=== PATIENT | female | born 1945 | race Caucasian/White ===

== ENCOUNTER 2016-07-26 05:56 | Inpatient (IN) | payer OTHER ==
[2016-07-18 13:59] VITALS: BMI 25.7
[2016-07-26] MEDS ORDERED: CELECOXIB 200 MG CAPSULE PO ONE (06:08)
[2016-07-26] MEDS ORDERED: oxyCODONE HCL 10 MG SUSTAINED ACTING TABLET PO ONE (06:08)
[2016-07-26] MEDS ORDERED: CEFAZOLIN 1 GM/D5W 50 ML IVPB ONE (06:08)
[2016-07-26] MEDS ORDERED: TRANEXAMIC ACID 1000 MG/10 ML VIAL IVPUSH ONE (06:08)
[2016-07-26] MEDS ORDERED: GABAPENTIN 300 MG CAPSULE (FP) PO ONE (06:08)
[2016-07-26] MEDS ORDERED: ROPIVICAINE 0.2%/MORPH PF/KETOROLAC - 51ML DISP.SYRINGE IA ONE ×2 (06:08→07:14)
[2016-07-26] MEDS ORDERED: DEXAMETHASONE SOD PHOSPHATE/PF 10 MG/ML SDV ONE (06:40)
[2016-07-26] MEDS ORDERED: MIDAZOLAM HCL 2 MG/2 ML SINGLE DOSE VIAL ONE (06:41)
[2016-07-26] MEDS ORDERED: SODIUM CHLORIDE 0.9% P/F 10 ML VIAL IJ ONE (06:41)
[2016-07-26] MEDS ORDERED: ROPIVACAINE HCL 0.5% 30ML VIAL ONE (06:41)
[2016-07-26] MEDS ORDERED: TRANEXAMIC ACID 1000 MG/10 ML VIAL ONE ×2 (07:13→07:44)
[2016-07-26] MEDS ORDERED: ceFAZolin SODIUM 1 GM VIAL ONE ×2 (07:13→07:44)
[2016-07-26] MEDS ORDERED: VANCOMYCIN 1,000 MG VIAL (RESTRICTED TO ID ONLY) ONE (07:13)
--- NOTE | 2016-07-26 07:43 | HP ---
Admitting History and Physical - Admission Chief Complaint: Right knee osteoarthritis x years History of Present Illness: 71 year old female presents in regard to her right knee. Longstanding history of right knee osteoarthritis. Patient complains of pain, limited ROM and difficulty ambulating. Patient has failed conservative treatment including PO medication, injections, activity modification and an exercise program. At this point, patient would like to proceed with a right total knee arthroplasty. History Source: Patient - Past Medical History Cardiovascular: Yes: HTN Gastrointestinal: Yes: GERD ...: No Heme/Onc: Yes: B12 Deficiency Endocrine: Yes: Hypothyroidism - Past Surgical History Additional Past Surgical History: See written history & physical - Smoking History Smoking history: Former smoker Have you smoked in the past 12 months: No If you are a former smoker, when did you quit?: 1996 - Alcohol/Substance Use Hx Alcohol Use: Yes (OCCASIONALLY) Home Medications - Allergies Allergies/Adverse Reactions: Allergies Allergy/AdvReac Type Severity Reaction Status Date / Time Graawgj-Ekf-Ozt Reductase Allergy Severe MUSCLE Verified 07/18/16 14:01 Inhibitor PAIN, DIFFICULTY WALKING - Home Medications Home Medications: Ambulatory Orders Bisoprolol Fumarate/Hctz [Bisoprolol-Hctz 5-6.25 mg Tab] 1 tab PO DAILY Cholecalciferol (Vitamin D3) [Vitamin D3 -] 1,000 unit PO DAILY 07/18/16 Cyanocobalamin (Vitamin B-12) [Vitamin B12] 2,500 mcg PO DAILY 07/18/16 Ibuprofen 800 mg PO PRN PRN 07/18/16 Lansoprazole [Prevacid] 30 mg PO DAILY 07/18/16 Levothyroxine [Synthroid -] 75 mcg PO DAILY 07/18/16 Losartan Potassium 25 mg PO DAILY 07/18/16 [place]-3 Fatty Acids/Fish Oil [Fish Oil 1,000 mg Softgel] 1,000 mg PO DAILY 07/18 Review of Systems - Review of Systems Musculoskeletal: reports: Crepitus (Right knee), Decreased ROM (Right knee), Joint Pain (Right knee), Joint Swelling (Right knee) Physical Examination Vital Signs: Vital Signs Temperature 98.1 F 07/26/16 06:39 Pulse Rate 60 07/26/16 06:39 Respiratory Rate 18 07/26/16 06:39 Blood Pressure 141/80 07/26/16 06:39 O2 Sat by Pulse Oximetry (%) Constitutional: Yes: Well Nourished, No Distress Eyes: Yes: Conjunctiva Clear HENT: Yes: Atraumatic, Normocephalic Neck: Yes: Supple Cardiovascular: Yes: Regular Rate and Rhythm Respiratory: Yes: Regular Gastrointestinal: Yes: Soft ...Rectal Exam: Yes: Deferred Musculoskeletal: Yes: Joint Stiffness (Right knee), Joint Swelling (Right knee) Assessment/Plan 71 year old female with longstanding right knee osteoarthritis. Patient is limited in ADLs and ambulation. Patient has failed conservative treatment. Proceed with a right total knee arthroplasty.
[2016-07-26] MEDS ORDERED: PROPOFOL 20 ML ONE (07:44)
[2016-07-26] MEDS ORDERED: SUCCINYLCHOLINE CHLORIDE 200 MG/10 ML VIAL ONE (07:44)
[2016-07-26] MEDS ORDERED: BUPIVACAINE HCL/PF 0.5% (5MG/ML) 10 ML VIAL ONE (07:52)
--- NOTE | 2016-07-26 08:05 | HP ---
Admitting History and Physical - Admission Chief Complaint: Right knee OA, left knee OA History of Present Illness: Bilateral knee OA x many years, failed conservative management, indicated for R TKA. Also requests left knee corticosteroid injection. History Source: Patient, Medical Record Limitations to Obtaining History: No Limitations - Past Medical History Cardiovascular: Yes: HTN Gastrointestinal: Yes: GERD ...: No Heme/Onc: Yes: B12 Deficiency Endocrine: Yes: Hypothyroidism - Past Surgical History Additional Past Surgical History: See written history & physical - Smoking History Smoking history: Former smoker Have you smoked in the past 12 months: No If you are a former smoker, when did you quit?: 1996 - Alcohol/Substance Use Hx Alcohol Use: Yes (OCCASIONALLY) - Social History Usual Living Arrangement: Yes: With Spouse ADL: Independent Home Medications - Allergies Allergies/Adverse Reactions: Allergies Allergy/AdvReac Type Severity Reaction Status Date / Time Pgclowv-Xnp-Leo Reductase Allergy Severe MUSCLE Verified 07/18/16 14:01 Inhibitor PAIN, DIFFICULTY WALKING - Home Medications Home Medications: Ambulatory Orders Bisoprolol Fumarate/Hctz [Bisoprolol-Hctz 5-6.25 mg Tab] 1 tab PO DAILY Cholecalciferol (Vitamin D3) [Vitamin D3 -] 1,000 unit PO DAILY 07/18/16 Cyanocobalamin (Vitamin B-12) [Vitamin B12] 2,500 mcg PO DAILY 07/18/16 Ibuprofen 800 mg PO PRN PRN 07/18/16 Lansoprazole [Prevacid] 30 mg PO DAILY 07/18/16 Levothyroxine [Synthroid -] 75 mcg PO DAILY 07/18/16 Losartan Potassium 25 mg PO DAILY 07/18/16 [place]-3 Fatty Acids/Fish Oil [Fish Oil 1,000 mg Softgel] 1,000 mg PO DAILY 07/18 Physical Examination Vital Signs: Vital Signs Temperature 98.1 F 07/26/16 06:39 Pulse Rate 60 07/26/16 06:39 Respiratory Rate 18 07/26/16 06:39 Blood Pressure 141/80 07/26/16 06:39 O2 Sat by Pulse Oximetry (%) Constitutional: Yes: Well Nourished, No Distress Eyes: Yes: WNL, Conjunctiva Clear, EOM Intact HENT: Yes: WNL, Atraumatic, Normocephalic Neck: Yes: WNL, Supple Cardiovascular: Yes: WNL, Regular Rate and Rhythm Respiratory: Yes: WNL, Regular Gastrointestinal: Yes: WNL, Soft ...Rectal Exam: Yes: Deferred Musculoskeletal: Yes: Joint Stiffness, Joint Swelling, Muscle Pain Extremities: Yes: WNL Edema: No Peripheral Pulses WNL: Yes Integumentary: Yes: WNL Neurological: Yes: WNL, Alert, Oriented ...Motor Strength: WNL Psychiatric: Yes: WNL, Alert, Oriented Labs: reviewed in chart Imaging - Results X-ray: Image Reviewed Problem List - Problems (1) Bilateral primary osteoarthritis of knee Code(s): M17.0 - BILATERAL PRIMARY OSTEOARTHRITIS OF KNEE Assessment/Plan 71yo female with bilateral knee OA for R TKA and left knee corticosteroid injection
[2016-07-26] MEDS ORDERED: methylPREDNISolone ACET (DEPO) 40 MG/1 ML VIAL ONE ×2 (08:15→08:17)
[2016-07-26] MEDS ORDERED: LIDOCAINE HCL 1%, 10 MG/ML (20ML VIAL) ONE (08:16)
[2016-07-26] MEDS ORDERED: ONDANSETRON 4 MG/2 ML VIAL IVPUSH PRN (08:48)
[2016-07-26] MEDS ORDERED: ROPIVACAINE 0.2% 400ML 400 ML ML NR ONE (08:51)
[2016-07-26] MEDS ORDERED: DEXAMETHASONE SOD PHOSPHATE 4 MG/1 ML VIAL ONE (09:00)
[2016-07-26] MEDS ORDERED: GABAPENTIN 300 MG CAPSULE (FP) PO SCH (10:00)
--- NOTE | 2016-07-26 11:06 | OP ---
Operative Note - Note: Operative Date: 07/26/16 Pre-Operative Diagnosis: bilateral knee OA Operation: left knee corticosteroid injection, right TKA Post-Operative Diagnosis: Same as Pre-op Surgeon: John Olivarez Deportation Examiner: Isabel Yip Anesthesia: Spinal Estimated Blood Loss (mls): 50
[2016-07-26] MEDS ORDERED: MAGNESIUM HYDROX 2400MG/30ML ORAL SUSPENSION 30 ML CUP PO PRN (11:08)
[2016-07-26] MEDS ORDERED: MAG HYDROX/AL HYDROX/SIMETH 30 ML UNIT-DOSE CUP PO PRN (11:08)
[2016-07-26] MEDS ORDERED: LACTATED RINGERS SOLUTION 1,000 ML IV SCH (11:15)
[2016-07-26] MEDS ORDERED: KETOROLAC TROMETHAMINE 30 MG/1 ML VIAL ONE (11:48)
[2016-07-26] MEDS: ACETAMINOPHEN 325 MG TABLET (FP) PO SCH ×3 (12:00→23:22)
[2016-07-26] MEDS: KETOROLAC TROMETHAMINE 30 MG/1 ML VIAL IVPUSH SCH ×3 (12:00→23:24)
[2016-07-26] MEDS: traMADol HCL 50 MG TABLET PO SCH ×3 (12:00→23:24)
[2016-07-26] MEDS: CEFAZOLIN 1 GM/D5W 50 ML IVPB SCH ×2 (16:42→23:22)
[2016-07-26] MEDS: oxyCODONE HCL 5 MG TABLET PO PRN (17:27)
[2016-07-26] MEDS: oxyCODONE HCL 10 MG SUSTAINED ACTING TABLET PO SCH ×2 (19:37→22:00)
[2016-07-26] MEDS: LACTATED RINGERS SOLUTION 1,000 ML IV SCH (19:37)
[2016-07-26] MEDS: CELECOXIB 200 MG CAPSULE PO SCH (22:00)
[2016-07-26] MEDS: GABAPENTIN 300 MG CAPSULE (FP) PO SCH (22:00)
[2016-07-26] MEDS: ASCORBIC ACID 500 MG TABLET (FP) PO SCH (22:00)
[2016-07-26] MEDS: SENNOSIDES/DOCUSATE COMBO (SENNA PLUS) TABLET (UD) PO SCH (22:00)
[2016-07-27] MEDS: KETOROLAC TROMETHAMINE 30 MG/1 ML VIAL IVPUSH SCH (06:34)
[2016-07-27] MEDS: traMADol HCL 50 MG TABLET PO SCH ×4 (06:35→23:14)
[2016-07-27] MEDS: LEVOTHYROXINE NA 75 MCG TABLET (FP) PO SCH (06:35)
[2016-07-27] MEDS: ACETAMINOPHEN 325 MG TABLET (FP) PO SCH ×4 (06:35→23:14)
[2016-07-27] MEDS: ASPIRIN 325 MG TABLET PO SCH (07:54)
[2016-07-27] MEDS: oxyCODONE HCL 5 MG TABLET PO PRN ×2 (07:56→21:16)
[2016-07-27 08:37] LABS: MCH 30.5 pg (25.7-33.7); MCHC 33.9 g/dl (32.0-36.0); MEAN CELL VOLUME 89.9 fl (80-96); MEAN PLT VOLUME 7.7 fl (7.5-11.1); PLATELET COUNT 269 K/MM3 (134-434); WHITE BLOOD COUNT 13.1 K/mm3 (4.0-10.8)
[2016-07-27 09:07] LABS: ANION GAP 6 (8-16); CALCIUM 9.3 mg/dl (8.4-10.2); CO2 27 mmol/L (22-28); CREATININE 0.7 mg/dl (0.6-1.3); GLUCOSE,RANDOM 111 mg/dl (74-106)
--- NOTE | 2016-07-27 09:16 | PN ---
Progress Note (short form) - Note Progress Note: Anesthesiology Post-op S: Patient doing well POD #1 s/p Right total knee replacement. Pain is adequately controlled with PO medication and continuous adductor canal catheter. Patient is ambulating and participating in PT. O: Dressing for adductor canal catheter is C/D/I A/P: Continue current care. Encouraged incentive spirometer and active participation with PT.
[2016-07-27] MEDS ORDERED: HCTZ PO SCH (10:00)
[2016-07-27] MEDS ORDERED: [UNRECOGNIZED DRUG - OTHER] PO SCH (10:00)
[2016-07-27] MEDS ORDERED: BISOPROLOL FUMARATE PO SCH (10:00)
[2016-07-27] MEDS: LACTATED RINGERS SOLUTION 1,000 ML IV SCH (10:02)
[2016-07-27] MEDS: ONDANSETRON 4 MG/2 ML VIAL IVPB PRN (10:02)
[2016-07-27] MEDS: ASCORBIC ACID 500 MG TABLET (FP) PO SCH ×2 (10:03→21:16)
[2016-07-27] MEDS: PANTOPRAZOLE 40 MG TABLET (FP) PO SCH (10:03)
[2016-07-27] MEDS: LOSARTAN POTASSIUM 25 MG TABLET PO SCH (10:03)
[2016-07-27] MEDS: oxyCODONE HCL 10 MG SUSTAINED ACTING TABLET PO SCH ×2 (10:03→21:15)
[2016-07-27] MEDS: CELECOXIB 200 MG CAPSULE PO SCH ×2 (10:03→21:16)
[2016-07-27] MEDS: MULTIVITAMINS (DAILY MVI) TABLET (FP) PO SCH (10:03)
[2016-07-27] MEDS: GABAPENTIN 300 MG CAPSULE (FP) PO SCH ×2 (10:03→21:16)
[2016-07-27] MEDS: SENNOSIDES/DOCUSATE COMBO (SENNA PLUS) TABLET (UD) PO SCH ×2 (10:05→21:16)
--- NOTE | 2016-07-27 11:11 | SPEC ---
DATE OF OPERATION: 07/26/2016 PREOPERATIVE DIAGNOSIS: Bilateral knee osteoarthritis. POSTOPERATIVE DIAGNOSIS: Bilateral knee osteoarthritis. PROCEDURES: Right total knee replacement. Left knee intra-articular corticosteroid injection. ATTENDING: John Olivarez MD AGRICULTURE INTERN: YEVGENIY Degroot ANESTHESIA: Spinal plus sedation. ESTIMATED BLOOD LOSS: Fifty milliliters. COMPLICATIONS: None. SPECIMENS: Resected bone was sent for Pathology analysis. DISPOSITION: The patient was transferred to the PACU in stable condition. IMPLANTS USED: Pierce Triathlon size 3 femoral component, Pierce Triathlon size 3 tibial component, a 13-mm total stabilized polyethylene component, a 32-mm patellar component, a 50-mm tibial stem. INDICATIONS: This is a 71-year-old female who has had bilateral knee osteoarthritis for several years. She has been managed nonoperatively in our office with injections, medications and physical therapy, but these failed to provide sustained relief, and she had severe pain and ambulatory dysfunction. She was indicated for right total knee replacement. We discussed also doing a left knee intra-articular injection at the time of surgery in order to help her postoperative therapy proceed with less pain. The risks, benefits and alternatives to the procedure were explained to the patient, and she elected to proceed with the surgery. On the day of surgery, the patient was taken to the operating room and placed on the OR table. Spinal anesthesia was administered by the anesthesiologist. The patient was then positioned supine on the table and all bony prominences were padded. A nonsterile tourniquet was placed on the proximal thigh. The knee was then prepped and draped in the usual sterile fashion and intravenous antibiotics were given for infection prophylaxis. A surgical time-out was then performed with the team, and the patients identity, procedure, side, availability of implants, and the administration of antibiotics was confirmed. The leg was then elevated and exsanguinated, and the tourniquet was inflated. With the knee flexed, a midline incision was made and carried down through the subcutaneous fat to the underlying retinaculum. A medial parapatellar arthrotomy was performed. This was followed by a subperiosteal dissection of the tissue off the proximal, medial tibia. A portion of fat pad was removed from under the patellar tendon, and a small portion of fat was excised off the distal supracondylar femur. The knee was then flexed further and the anterior horn of the lateral meniscus was released from the midline. Next, the anterior and posterior cruciate ligaments were transected. Osteophytes were removed from both the femur and tibia. Grade 4 changes were noted diffusely throughout the knee. Hohmann retractors were then placed around the distal femur. The starting drill was used to enter the intramedullary canal. The starting point had been chosen by checking the radiographs and anatomy. Proper alignment and intramedullary placement was then confirmed by placing the long narrow derrell into the femur. Next, the distal femoral cutting guide was adjusted to 6 degrees of valgus and pinned to the femur. The bone resection was assessed using an lena-wing. An approximately 10 mm distal cut was made and the cut pieces measured. Once this was complete, the sizing guide was used to determine which size femoral component should be used. Next, the appropriately sized 4-in-1 cutting block was then placed at the correct amount of external rotation and the lena-wing was used to assure that there would be no notching of the anterior cortex of the femur. Once this was done, Hohmann retractors were used to protect the medial and lateral collateral ligaments, and all appropriate bone cuts were made. Attention was then turned to the tibia. Hohmann retractors were used to translate the tibia anteriorly and protect the collateral ligaments. The medial and lateral menisci were removed. The extramedullary tibial alignment guide was then placed and adjusted for rotation, varus/valgus, and slope. The height of the cutting block was adjusted to the level of the desired bone resection and then pinned in place. The proximal tibia was then cut with a saw and the bone was removed and measured. Once this was completed, trial components were placed and the knee was taken through a full range of motion. Soft tissue balance was assessed in both flexion and extension and found to be appropriate. The knee was stable throughout the full range of motion. The knee was then put into extension and the patella everted. The synovium around the patella was circumscribed with electrocautery. A caliper was used to measure the patellar thickness and a saw was then used to resect the patella at the chondro-osseous junction. The cut surface was then sized and drilled for the appropriate patellar button, with care taken to medialize it. A trial patella was then placed and the knee was again taken through a full range of motion. The knee was found to have both good balance and good patellar tracking. All of the components were removed except the tibial base plate. The appropriate instrumentation was used to drill and punch the proximal tibia for the keel of the final component. All bony surfaces were then cleaned with pulsatile lavage and dried. Bone cement was then prepared on the back table, and final components were cemented in place in the usual fashion. Extruded cement was removed. The polyethylene trial was placed, the knee was put into extension, and axial pressure was applied for compression while the cement hardened. The patellar button was similarly cemented into place. Once the cement had hardened, the knee was taken through a full range of motion to assess stability, balance, and patellar tracking. This was found to be optimal and the trial polyethylene was exchanged for the appropriately sized real implant. The wound was then thoroughly irrigated with normal saline. No. 1 Polysorb and 0 V-Loc 180 barbed sutures were used to close the arthrotomy. No. 1 Polysorb and 2-0 Polysorb sutures were used in the subcutaneous tissues. The skin was closed using both 3-0 V-Loc 90 suture in a running subcuticular fashion and SwiftSet skin adhesive. Once this was completed, a sterile Aquacel dressing and compressive Pawan wrap was applied. The tourniquet was then deflated and the patient was awakened and taken to the PACU in stable condition. ADDENDUM: At the start of the case, prior to the right lower extremity being prepped and draped, after the timeout was performed, the left knee was injected with corticosteroid. After sterile preparation of the skin with alcohol, an inferolateral parapatellar injection site was used to inject 80 mg of Depo-Medrol and 1% lidocaine into the joint space of the knee. The patient tolerated the procedure well. There were no complications. A Band-Aid was placed over the injection site, after the needle was withdrawn. After the final components were placed, the knee was irrigated with normal saline. This was followed by a 3-minute dilute Betadine lavage as per the [place] protocol. Once this was completed, the knee was again thoroughly irrigated with normal saline via pulsatile lavage and wound closure was begun. Adilson [id number]
--- NOTE | 2016-07-27 13:46 | PN ---
Progress Note (short form) - Note Progress Note: Pt seen and examined. Comfortable. No complaints. AVSS Selected Entries 07/27/16 10:01 Temperature 98.5 F Pulse Rate 60 Respiratory 18 Rate Blood Pressure 143/66 Laboratory Tests 07/27/16 07/27/16 07:34 07:34 WBC 13.1 H Hgb 12.1 Hct 35.9 Plt Count 269 Sodium 140 Potassium 4.7 Chloride 107 Carbon Dioxide 27 Anion Gap 6 L BUN 17 Creatinine 0.7 Random Glucose 111 H Calcium 9.3 Gen: NAD RLE: c/d/i, NVID A/P POD#1 s/p R TKA 1. PT/OOB 2. Plan for d/c home tomorrow Problem List - Problems (1) Bilateral primary osteoarthritis of knee Code(s): M17.0 - BILATERAL PRIMARY OSTEOARTHRITIS OF KNEE
--- NOTE | 2016-07-27 15:05 | PN ---
Progress Note (short form) - Note Progress Note: adductor canal cath pulled. tip intact. no complications.
[2016-07-28] MEDS: oxyCODONE HCL 5 MG TABLET PO PRN ×3 (01:10→13:26)
[2016-07-28] MEDS: ACETAMINOPHEN 325 MG TABLET (FP) PO SCH ×2 (05:26→11:06)
[2016-07-28] MEDS: traMADol HCL 50 MG TABLET PO SCH ×2 (05:27→11:06)
[2016-07-28] MEDS: ONDANSETRON 4 MG/2 ML VIAL IVPB PRN (05:46)
[2016-07-28 06:16] VITALS: BP 147/58; PULSE 61; TEMP 97.8
[2016-07-28] MEDS: LEVOTHYROXINE NA 75 MCG TABLET (FP) PO SCH (06:48)
[2016-07-28 08:29] LABS: MCH 30.1 pg (25.7-33.7); MCHC 33.5 g/dl (32.0-36.0); MEAN PLT VOLUME 7.7 fl (7.5-11.1); PLATELET COUNT 260 K/MM3 (134-434); RDW 12.8 % (11.6-15.6)
[2016-07-28 08:30] LABS: ANION GAP 8 (8-16); CALCIUM 8.7 mg/dl (8.4-10.2); CO2 26 mmol/L (22-28); CREATININE 0.7 mg/dl (0.6-1.3); GLUCOSE,RANDOM 133 mg/dl (74-106)
[2016-07-28] MEDS: ASPIRIN 325 MG TABLET PO SCH (08:35)
[2016-07-28] MEDS: LOSARTAN POTASSIUM 25 MG TABLET PO SCH (09:43)
[2016-07-28] MEDS: MULTIVITAMINS (DAILY MVI) TABLET (FP) PO SCH (09:43)
[2016-07-28] MEDS: LACTATED RINGERS SOLUTION 1,000 ML IV SCH (09:43)
[2016-07-28] MEDS: SENNOSIDES/DOCUSATE COMBO (SENNA PLUS) TABLET (UD) PO SCH (09:43)
[2016-07-28] MEDS: PANTOPRAZOLE 40 MG TABLET (FP) PO SCH (09:43)
[2016-07-28] MEDS: CELECOXIB 200 MG CAPSULE PO SCH (09:43)
[2016-07-28] MEDS: GABAPENTIN 300 MG CAPSULE (FP) PO SCH (09:43)
[2016-07-28] MEDS: ASCORBIC ACID 500 MG TABLET (FP) PO SCH (09:43)
[2016-07-28] MEDS: oxyCODONE HCL 10 MG SUSTAINED ACTING TABLET PO SCH (09:44)
--- NOTE | 2016-07-28 13:55 | PN ---
Progress Note (short form) - Note Progress Note: Pt seen and examined. Comfortable. No complaints. AVSS Selected Entries 07/28/16 06:14 Temperature 97.8 F Pulse Rate 61 Respiratory 18 Rate Blood Pressure 147/58 O2 Sat by Pulse 97 Oximetry (%) Oxygen Delivery Room Air Method Laboratory Tests 07/28/16 07/28/16 07:28 07:28 WBC 9.0 D Hgb 11.6 Hct 34.5 Plt Count 260 Sodium 138 Potassium 3.8 Chloride 104 Carbon Dioxide 26 Anion Gap 8 BUN 17 Creatinine 0.7 Random Glucose 133 H Calcium 8.7 Gen: NAD RLE: c/d/i, NVID A/P POD#2 s/p R TKA 1. PT/OOB 2. D/C home today Problem List - Problems (1) Bilateral primary osteoarthritis of knee Code(s): M17.0 - BILATERAL PRIMARY OSTEOARTHRITIS OF KNEE
--- NOTE | 2016-07-28 14:03 | DS ---
Physical Examination Vital Signs: Vital Signs Temperature 97.8 F 07/28/16 06:14 Pulse Rate 61 07/28/16 06:14 Respiratory Rate 18 07/28/16 06:14 Blood Pressure 147/58 07/28/16 06:14 O2 Sat by Pulse Oximetry (%) 97 07/28/16 06:14 Labs: CBC, BMP 07/28/16 07:28 07/28/16 07:28 Discharge Summary Reason For Visit: OSTEOARTHRITIS OF RIGHT KNEE Current Active Problems Bilateral primary osteoarthritis of knee (Acute) Procedures: Principal: right TKA, left knee corticosteroid injection Hospital Course: Admitted for elective surgery. Procedure performed without complications. Pt received postoperative antibiotic prophylaxis and DVT ppx. Ambulated with physical therapy. Stable for discharge home with outpatient followup. Condition: Stable - Instructions Diet, Activity, Other Instructions: Dr. Olivarez - Knee Replacement Instructions Keep the Aquacel dressing on until removed by Dr. Olivarez in 10-14 days - it is antibacterial and waterproof and you can shower with it on. Call the office for a follow-up appointment with Dr. Olivarez in 10-14 days. Take one Aspirin 325mg daily for 6 weeks to prevent blood clots in your legs. Resume taking Prevacid (lansoprazole) daily to protect against heartburn and ulcers. Take Celebrex 200mg once daily for 30 days to reduce swelling and inflammation. Take a multivitamin, vitamin C supplement, and stool softener daily. Take Ondansetron as needed every 6 hours for nausea. For pain: *Mild pain (1-3/10): Take 1 Tramadol tablet every 4 hours as needed. Moderate pain (4-6/10): Take 1 Tramadol tablet and 1 Percocet tablet every 4 hours as needed. Severe pain (7-10/10): Take 1 Tramadol tablet and 2 Percocet tablets every 4 hours as needed. Activity: You can put as much weight on the operative leg as you want. Right after you get home, there will be a physical therapist coming to your house to help you walk around and bend/straighten your knee. After your follow-up appointment, you will be sent for more intensive outpatient physical therapy which will include machines and equipment that the home therapist cannot bring to your house. Always use a walker or cane for balance and to prevent falls. Disposition: HOME - Home Medications Comprehensive Discharge Medication List: Ambulatory Orders Bisoprolol Fumarate/Hctz [Bisoprolol-Hctz 5-6.25 mg Tab] 1 tab PO DAILY Cholecalciferol (Vitamin D3) [Vitamin D3 -] 1,000 unit PO DAILY 07/18/16 Cyanocobalamin (Vitamin B-12) [Vitamin B12] 2,500 mcg PO DAILY 07/18/16 Lansoprazole [Prevacid] 30 mg PO DAILY 07/18/16 Levothyroxine [Synthroid -] 75 mcg PO DAILY 07/18/16 Losartan Potassium 25 mg PO DAILY 07/18/16 [place]-3 Fatty Acids/Fish Oil [Fish Oil 1,000 mg Softgel] 1,000 mg PO DAILY 07/18 Ascorbic Acid [Vitamin C -] 500 mg PO BID tablet 07/28/16 Aspirin [ASA -] 325 mg PO DAILY@0800 tablet 07/28/16 Celecoxib [CeleBREX -] 200 mg PO DAILY #30 tab 07/28/16 Multivitamins [Multivit ([facility] Formulary)] 1 tab PO DAILY tab 07/28/16 Ondansetron [Zofran Odt -] 4 mg SL Q6H PRN #21 od.tablet 07/28/16 Oxycodone HCl/Acetaminophen [Percocet 5-325 mg Tablet] 1 - 2 tab PO Q4H PRN #60 tablet MDD 10 07/28/16 Sennosides/Docusate Sodium [Pericolace -] 1 tablet PO BID tablet 07/28/16 Tramadol HCl [Ultram -] 50 mg PO Q4H PRN #90 tablet MDD 6 07/28/16
--- NOTE | 2016-07-30 11:13 | PATH ---
Surgical Pathology Report Patient Name: ANALIA RICKETTS Med. Rec. #: [id number] /Age/Gender: 1945 (Age: 71) / F Account: [id number] Location: [facility] MED-SURG Taken: 07/26/2016 Received: 07/26/2016 Reported: 07/30/2016 Physicians: John Olivarez M.D. Specimen(s) Received BONE RIGHT KNEE Clinical History Right knee osteoarthritis Final Diagnosis BONE AND SOFT TISSUE, RIGHT KNEE, REPLACEMENT: DEGENERATIVE JOINT DISEASE. Electronically Signed Dalton Harvey M.D. Gross Description Received in formalin labeled "bone right knee," is a 13.5 x 9.5 x 2.0 cm aggregate of multiple irregular portions of bone and soft tissue. The tibial plateau measures 7.6 x 5.1 x 1.8 cm. There is a 2.8 cm in greatest dimension area of eburnation present. The remaining articular surfaces are araiza-yellow and focally granular. The underlying trabecular bone is yellow and hard. Electronic Technologist sections are submitted in one cassette, following decalcification. /07/27/[address] [facility]07/27/2016
== END 2016-07-28 16:48 | disposition home or self-care (01) | DRG 470 ==
LOC: FM/S 05:56
PROVIDERS: ADMIT Student in an Organized Health Care Education/Training Program; ATTEND Student in an Organized Health Care Education/Training Program
PROC: 3E0U33Z Introduction of Anti-inflammatory into Joints, Percutaneous Approach (ICD-10-PCS; 2016-07-26)
PROC: 3E0U3BZ Introduction of Anesthetic Agent into Joints, Percutaneous Approach (ICD-10-PCS; 2016-07-26)
PROC: 0SRC0J9 Replacement of Right Knee Joint with Synthetic Substitute, Cemented, Open Approach (ICD-10-PCS; principal; 2016-07-26 08:42)
DX: M17.0 Bilateral primary osteoarthritis of knee (principal); I10 Essential (primary) hypertension; K21.9 Gastro-esophageal reflux disease without esophagitis; E03.9 Hypothyroidism, unspecified; E53.8 Deficiency of other specified B group vitamins
CPT/HCPCS: 36415; 73560-TC-RT; 80048; 85027; 88305-TC; 88311-TC; 94010; 94760; 97116-GP; 97162-PG

== ENCOUNTER 2017-10-24 05:54 | Inpatient (IN) | payer OTHER ==
[2017-10-16 17:01] VITALS: BMI 26.2
[~2017-10-24 05:54] MED LIST: CEFAZOLIN 1 GM/D5W 1 GRAM/50 ML BAG IVPB ONE; CELECOXIB 200 MG CAPSULE PO ONE; GABAPENTIN 300 MG CAPSULE (FP) PO ONE; PANTOPRAZOLE 40 MG TABLET (FP) PO ONE; oxyCODONE HCL 10 MG SUSTAINED ACTING TABLET PO ONE
[2017-10-24] MEDS ORDERED: MIDAZOLAM HCL 2 MG/2 ML SINGLE DOSE VIAL ONE (06:58)
[2017-10-24] MEDS ORDERED: BUPIVACAINE LIPOSOME/PF (EXPAREL) 266 MG/20 ML VIAL ONE (06:58)
[2017-10-24] MEDS ORDERED: SODIUM CHLORIDE 0.9% P/F 10 ML VIAL IJ ONE (06:59)
[2017-10-24] MEDS ORDERED: BUPIVACAINE HCL/PF (5 MG/ML) 30 ML VIAL IJ ONE (06:59)
[2017-10-24] MEDS ORDERED: GABAPENTIN 300 MG CAPSULE (FP) ONE (07:10)
[2017-10-24] MEDS ORDERED: CELECOXIB 200 MG CAPSULE ONE (07:10)
[2017-10-24] MEDS ORDERED: oxyCODONE HCL 10 MG SUSTAINED ACTING TABLET ONE (07:10)
[2017-10-24] MEDS ORDERED: PANTOPRAZOLE 40 MG TABLET (FP) ONE (07:10)
--- NOTE | 2017-10-24 07:27 | HP ---
Admitting History and Physical - Admission Chief Complaint: left knee osteoarthritis x years History of Present Illness: 72 year old female presents today in regard to her left knee. Longstanding history of left knee osteoarthritis. Patient complains of pain, limited ROM, difficulty ambulating, difficulty with ADLs. Patient has failed conservative treatment options including PO medication, activity modification, injections and exercise program. At this point, patient would like to proceed with surgical intervention - left total knee arthroplasty (MAKOplasty). History Source: Patient - Past Medical History Cardiovascular: Yes: HTN Gastrointestinal: Yes: GERD Heme/Onc: Yes: B12 Deficiency Endocrine: Yes: Hypothyroidism - Past Surgical History Additional Past Surgical History: See written history & physical. - Smoking History Smoking history: Former smoker Have you smoked in the past 12 months: No If you are a former smoker, when did you quit?: 1996 - Alcohol/Substance Use Hx Alcohol Use: Yes (OCCASIONALLY) - Social History ADL: Independent Home Medications - Allergies Allergies/Adverse Reactions: Allergies Allergy/AdvReac Type Severity Reaction Status Date / Time Myeimmq-Ghz-Jng Reductase Allergy Severe MUSCLE Verified 10/16/17 16:51 Inhibitor PAIN, DIFFICULTY WALKING aspirin AdvReac Severe BLACK STOOL Verified 10/16/17 16:52 - Home Medications Home Medications: Ambulatory Orders Bisoprolol/Hydrochlorothiazide [Bisoprolol-Hctz 5-6.25 mg Tab] 1 tab PO DAILY Cholecalciferol (Vitamin D3) [Vitamin D3 -] 1,000 unit PO DAILY 07/18/16 Cyanocobalamin (Vitamin B-12) [Vitamin B12] 2,500 mcg PO DAILY 07/18/16 Levothyroxine [Synthroid -] 75 mcg PO DAILY 07/18/16 Losartan Potassium 25 mg PO DAILY 07/18/16 [place]-3 Fatty Acids/Fish Oil [Fish Oil 1,000 mg Softgel] 1,000 mg PO DAILY 07/18 Ascorbic Acid [Vitamin C -] 500 mg PO BID tablet 07/28/16 Multivitamins [Multivit ([facility] Formulary)] 1 tab PO DAILY tab 07/28/16 Esomeprazole Magnesium [Nexium 24Hr] 20 mg PO DAILY 10/16/17 Review of Systems - Review of Systems Musculoskeletal: reports: Crepitus (left knee), Decreased ROM (left knee), Joint Pain (left knee) Physical Examination Vital Signs: Vital Signs Temperature 98.0 F 10/24/17 06:57 Pulse Rate 70 10/24/17 06:57 Respiratory Rate 18 10/24/17 06:57 Blood Pressure 148/78 10/24/17 06:57 O2 Sat by Pulse Oximetry (%) Constitutional: Yes: Well Nourished, No Distress Eyes: Yes: Conjunctiva Clear HENT: Yes: Atraumatic, Normocephalic Neck: Yes: Supple Respiratory: Yes: Regular Gastrointestinal: Yes: Soft Musculoskeletal: Yes: Joint Stiffness (left knee), Joint Swelling (left knee) Assessment/Plan 72 year old female presents today in regard to her left knee. Longstanding history of left knee osteoarthritis. Patient complains of pain, limited ROM, difficulty ambulating, difficulty with ADLs. Patient has failed conservative treatment options including PO medication, activity modification, injections and exercise program. At this point, patient would like to proceed with surgical intervention - left total knee arthroplasty (MAKOplasty). Pros, cons, risk, benefits and alternatives of a left toal knee arthroplasty (MAKOplasty) were discussed with the patient at length. Patient confirms her understanding and consents to proceed with a left total knee arthroplasty (MAKOplasty).
--- NOTE | 2017-10-24 07:30 | HP ---
Admitting History and Physical - Admission Chief Complaint: left knee osteoarthritis x years History of Present Illness: 72 year old female presents today in regard to her left knee. 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 - Past Medical History Cardiovascular: Yes: HTN Gastrointestinal: Yes: GERD Heme/Onc: Yes: B12 Deficiency Endocrine: Yes: Hypothyroidism - Smoking History Smoking history: Former smoker Have you smoked in the past 12 months: No If you are a former smoker, when did you quit?: 1996 - Alcohol/Substance Use Hx Alcohol Use: Yes (OCCASIONALLY) - Social History ADL: Independent Home Medications - Allergies Allergies/Adverse Reactions: Allergies Allergy/AdvReac Type Severity Reaction Status Date / Time [id number] Reductase Allergy Severe MUSCLE Verified 10/16/17 16:51 Inhibitor PAIN, DIFFICULTY WALKING aspirin AdvReac Severe BLACK STOOL Verified 10/16/17 16:52 - Home Medications Home Medications: Ambulatory Orders Bisoprolol/Hydrochlorothiazide [Bisoprolol-Hctz 5-6.25 mg Tab] 1 tab PO DAILY Cholecalciferol (Vitamin D3) [Vitamin D3 -] 1,000 unit PO DAILY 07/18/16 Cyanocobalamin (Vitamin B-12) [Vitamin B12] 2,500 mcg PO DAILY 07/18/16 Levothyroxine [Synthroid -] 75 mcg PO DAILY 07/18/16 Losartan Potassium 25 mg PO DAILY 07/18/16 [place]-3 Fatty Acids/Fish Oil [Fish Oil 1,000 mg Softgel] 1,000 mg PO DAILY 07/18 Ascorbic Acid [Vitamin C -] 500 mg PO BID tablet 07/28/16 Multivitamins [Multivit ([facility] Formulary)] 1 tab PO DAILY tab 07/28/16 Esomeprazole Magnesium [Nexium 24Hr] 20 mg PO DAILY 10/16/17 Physical Examination Vital Signs: Vital Signs Temperature 98.0 F 10/24/17 06:57 Pulse Rate 70 10/24/17 06:57 Respiratory Rate 18 10/24/17 06:57 Blood Pressure 148/78 10/24/17 06:57 O2 Sat by Pulse Oximetry (%)
[2017-10-24] MEDS ORDERED: TRANEXAMIC ACID 1000 MG/10 ML VIAL IVPUSH ONE (08:00)
[2017-10-24] MEDS ORDERED: ROPIVICAINE 0.2%/MORPH PF/KETOROLAC - 51ML DISP.SYRINGE IA ONE ×4 (08:00→10:52)
[2017-10-24] MEDS ORDERED: SUCCINYLCHOLINE CHLORIDE 200 MG/10 ML VIAL ONE (08:15)
[2017-10-24] MEDS ORDERED: TRANEXAMIC ACID 1000 MG/10 ML VIAL ONE ×2 (08:16→10:46)
[2017-10-24] MEDS ORDERED: ceFAZolin SODIUM 1 GM VIAL ONE (08:16)
[2017-10-24] MEDS ORDERED: ONDANSETRON 4 MG/2 ML VIAL ONE (08:16)
[2017-10-24] MEDS ORDERED: DEXAMETHASONE SOD PHOSPHATE 4 MG/1 ML VIAL ONE (08:16)
[2017-10-24] MEDS ORDERED: VANCOMYCIN 1,000 MG VIAL (RESTRICTED TO ID ONLY) IVPB ONE ×2 (09:38→10:32)
[2017-10-24] MEDS ORDERED: TRANEXAMIC ACID 1000 MG/10 ML VIAL IVPB ONE ×3 (09:39→10:33)
[2017-10-24] MEDS ORDERED: traMADol HCL 50 MG TABLET ONE (11:34)
[2017-10-24] MEDS ORDERED: ACETAMINOPHEN INJECTION 100 ML IVPB ONE (11:34)
[2017-10-24] MEDS ORDERED: KETOROLAC TROMETHAMINE 30 MG/1 ML VIAL ONE (11:34)
--- NOTE | 2017-10-24 11:35 | OP ---
Operative Note - Note: Operative Date: 10/24/17 Pre-Operative Diagnosis: left knee OA Operation: left Pawan TKA Post-Operative Diagnosis: Same as Pre-op Surgeon: John Olivarez Cash Applications Associate: Isabel Yip Anesthesia: Spinal Estimated Blood Loss (mls): 100
[2017-10-24] MEDS ORDERED: ACETAMINOPHEN 1000 MG/100 ML VIAL (NON FORMULARY) IVPB ONE (11:36)
[2017-10-24] MEDS ORDERED: ONDANSETRON 4 MG/2 ML VIAL IVPUSH PRN ×2 (11:39→11:45)
[2017-10-24] MEDS ORDERED: PROMETHAZINE HCL 25 MG/1 ML VIAL IVPUSH PRN (11:39)
[2017-10-24] MEDS ORDERED: oxyCODONE HCL 5 MG TABLET PO PRN ×2 (11:39)
[2017-10-24] MEDS ORDERED: LACTATED RINGERS SOLUTION 1,000 ML IV SCH (11:45)
[2017-10-24] MEDS ORDERED: KETOROLAC TROMETHAMINE 30 MG/1 ML VIAL IVPUSH SCH (11:45)
[2017-10-24] MEDS ORDERED: MAG HYDROX/AL HYDROX/SIMETH 30 ML UNIT-DOSE CUP PO PRN (11:45)
[2017-10-24] MEDS ORDERED: MAGNESIUM HYDROX 2400MG/30ML ORAL SUSPENSION 30 ML CUP PO PRN (11:45)
--- NOTE | 2017-10-24 12:13 | SPEC ---
DATE OF OPERATION: 10/24/2017 PREOPERATIVE DIAGNOSIS: Left knee osteoarthritis. POSTOPERATIVE DIAGNOSIS: Left knee osteoarthritis. PROCEDURE: Left total knee replacement with makoplasty and robotic navigation. ATTENDING: Jayne Byrd MD CELL GENETICIST: YEVGENIY Degroot ANESTHESIA: Spinal plus sedation. ESTIMATED BLOOD LOSS: 100 mL. COMPLICATIONS: None. DISPOSITION: The patient was transferred to the PACU in stable condition. IMPLANTS USED: Pierce Triathlon size 3 femoral component, size 3 tibial component with 50-mm tibial stem, 13-mm total stabilized polyethylene component, 32-mm patellar component. INDICATIONS: This is a 72-year-old female who presents to the office complaining of bilateral knee pain. She was diagnosed with bilateral knee severe osteoarthritis and underwent a right total knee replacement in July of 2016 which did very well. She continued to have left knee pain, and we managed this nonoperatively until the nonoperative treatments were not working and she had severe pain and ambulatory dysfunction. She, therefore, elected to proceed with the left total knee replacement. The risks, benefits, and alternatives to the procedure were explained to the patient in great detail, and she elected to proceed with the surgery. DESCRIPTION OF PROCEDURE: On the day of surgery, the patient was taken to the operating room and placed on the OR table. Spinal anesthesia was administered by the anesthesiologist. The patient was then positioned supine on the table and all bony prominences were padded. The knee was then prepped and draped in the usual sterile fashion and intravenous antibiotics were given for infection prophylaxis. A surgical time-out was then performed with the team, and the patients identity, procedure, side, availability of implants, and the administration of antibiotics was confirmed. With the knee flexed, a midline incision was made and carried down through the subcutaneous fat to the underlying retinaculum. A medial parapatellar arthrotomy was performed. This was followed by a subperiosteal dissection of the tissue off the proximal, medial tibia. A portion of fat pad was removed from under the patellar tendon, and a small portion of fat was excised off the distal supracondylar femur. Electrocautery and an Aquamantys bipolar sealing device were used to achieve hemostasis. The knee was then flexed further and the anterior horn of the lateral meniscus was released from the midline. Next, the anterior and posterior cruciate ligaments were transected. Grade 4 changes were noted diffusely throughout the knee. Femoral and tibial checkpoints were then placed in the appropriate location using a mallet. Two parallel bicortical self-drilling pins were placed in the tibial diaphysis after making stab incisions and bluntly dissecting down to bone. Two pins were then placed in the distal supracondylar femur. The [employer] navigation arrays were then attached to both the femoral and tibial pins and the lower extremity was then registered to the robotic navigation device using various joint movements, as well as inputting several dozen reference points. The knee was then taken through a full range of motion with a corrective force applied. Alignment in varus/valgus as well as flexion/extension and soft tissue balance was measured in various positions. The navigation device showed a numerical and graphic representation of the soft tissue balance. The components were repositioned virtually using the software until optimal soft tissue balance was achieved on screen. Once this was accomplished, the final plan was saved and sent to the robot. Self-retaining retractors were then placed at the joint line for exposure and protection of the collateral ligaments. The robot was brought into the sterile field and registered with the navigation device. The robotic arm with attached oscillating saw blade was then used to perform femoral and tibial bone cuts as per the saved software plan. The femoral box cut was made using the appropriately sized manual cutting guide. The knee was then irrigated. Trial components were placed and the knee was taken through a full range of motion to assess soft tissue balance and alignment. The range of motion was found to be excellent and the soft tissue balance was optimal and according to plan. The knee was then put into extension and the patella everted. The synovium around the patella was circumscribed with electrocautery. A caliper was used to measure the patellar thickness and a saw was then used to resect the patella at the chondro-osseous junction. The cut surface was then sized and drilled for the appropriate patellar button, with care taken to medialize it. A trial patella was then placed and the knee was again taken through a full range of motion. The knee was found to have both good balance and good patellar tracking. All of the components were removed except the tibial base plate. The appropriate instrumentation was used to drill and punch the proximal tibia for the keel of the final component. All bony surfaces were then cleaned with pulsatile lavage and dried. Bone cement was then prepared on the back table, and final components were cemented in place in the usual fashion. Extruded cement was removed. The polyethylene trial was placed, the knee was put into extension, and axial pressure was applied for compression while the cement hardened. The patellar button was similarly cemented into place. Once the cement had hardened, the knee was taken through a full range of motion to assess stability, balance, and patellar tracking. This was found to be optimal and the trial polyethylene was exchanged for the appropriately sized real implant. The wound was then thoroughly irrigated with normal saline. A 3-minute dilute Betadine lavage was performed. The knee was again irrigated using a pulsatile lavage device. A periarticular injection was used to locally infiltrate the capsular tissues surrounding the implant and prosthesis. Then No. 1 Polysorb and 0 VLoc 180 barbed sutures were used to close the arthrotomy. Then No. 1 Polysorb and 2-0 VLoc 90 sutures were used in the subcutaneous tissues. Then 4-0 undyed Vicryl and Dermabond skin adhesive was used to close the stab incisions made for the navigation pins. The skin was closed using both 3-0 VLoc 90 suture in a running subcuticular fashion and Dermabond skin adhesive. Once this was completed a sterile Aquacel dressing and compressive Pawan-wrap was applied. The patient was then awakened and taken to the PACU in stable condition. JAYNE BYRD M.D. DAISHA/[id number]
[2017-10-24] MEDS ORDERED: PROMETHAZINE HCL 25 MG/1 ML VIAL IVPUSH ONE (12:35)
[2017-10-24] MEDS: traMADol HCL 50 MG TABLET PO SCH ×2 (15:26→21:13)
[2017-10-24] MEDS: CEFAZOLIN 1 GM/D5W 1 GRAM/50 ML BAG IVPB SCH (17:17)
[2017-10-24] MEDS: ACETAMINOPHEN 325 MG TABLET (FP) PO SCH ×2 (17:35→23:57)
[2017-10-24] MEDS: KETOROLAC TROMETHAMINE 30 MG/1 ML VIAL IVPUSH SCH ×2 (17:36→23:59)
[2017-10-24] MEDS ORDERED: DEXAMETHASONE SOD PHOSPHATE 10 MG/1 ML VIAL IVPB ONE (20:00)
[2017-10-24] MEDS: ASCORBIC ACID 500 MG TABLET (FP) PO SCH (21:13)
[2017-10-24] MEDS: GABAPENTIN 300 MG CAPSULE (FP) PO SCH (21:13)
[2017-10-24] MEDS: SENNOSIDES/DOCUSATE COMBO (SENNA PLUS) TABLET (UD) PO SCH (21:13)
[2017-10-24] MEDS: oxyCODONE HCL 10 MG SUSTAINED ACTING TABLET PO SCH (21:14)
[2017-10-24] MEDS: CELECOXIB 200 MG CAPSULE PO SCH (21:14)
[2017-10-25] MEDS: CEFAZOLIN 1 GM/D5W 1 GRAM/50 ML BAG IVPB SCH (01:05)
[2017-10-25] MEDS: traMADol HCL 50 MG TABLET PO SCH ×4 (03:12→21:21)
[2017-10-25] MEDS: ACETAMINOPHEN 325 MG TABLET (FP) PO SCH ×4 (05:39→23:48)
[2017-10-25] MEDS: KETOROLAC TROMETHAMINE 30 MG/1 ML VIAL IVPUSH SCH (05:40)
[2017-10-25] MEDS: LEVOTHYROXINE NA 75 MCG TABLET (FP) PO SCH (06:12)
[2017-10-25 08:19] LABS: HEMATOCRIT 34.1 % (32.4-45.2); HEMOGLOBIN 11.2 GM/dl (10.7-15.3); MCH 29.8 pg (25.7-33.7); MCHC 32.7 g/dl (32.0-36.0); MEAN CELL VOLUME 91.1 fl (80-96); MEAN PLT VOLUME 7.9 fl (7.5-11.1); PLATELET COUNT 267 K/MM3 (134-434); RBC 3.74 M/mm3 (3.60-5.2); RDW 12.8 % (11.6-15.6)
[2017-10-25 08:43] LABS: ANION GAP 5 MMOL/L (8-16); BLOOD UREA NITROGEN 16 mg/dl (7-18); CALCIUM 9.2 mg/dl (8.4-10.2); CHLORIDE 106 mmol/L (98-107); CO2 27 mmol/L (22-28); CREATININE 0.7 mg/dl (0.6-1.3); GLUCOSE,RANDOM 138 mg/dl (74-106); SODIUM 138 mmol/L (136-145)
--- NOTE | 2017-10-25 08:50 | PN ---
Progress Note (short form) - Note Progress Note: 72F POD1 s/p left TKR under spinal anesthetic with peripheral nerve blocks Pt states that pain is well controlled and reports no anesthetic complications. AVSS. Motor and sensory function intact in bilateral lower extremities. Continue current regimen.
[2017-10-25] MEDS: LOSARTAN POTASSIUM 25 MG TABLET PO SCH (08:59)
[2017-10-25] MEDS: CELECOXIB 200 MG CAPSULE PO SCH ×2 (08:59→21:22)
[2017-10-25] MEDS: APIXABAN 2.5 MG TABLET PO SCH ×2 (09:00→21:21)
[2017-10-25] MEDS: SENNOSIDES/DOCUSATE COMBO (SENNA PLUS) TABLET (UD) PO SCH ×2 (09:00→21:21)
[2017-10-25] MEDS: GABAPENTIN 300 MG CAPSULE (FP) PO SCH ×2 (09:00→21:23)
[2017-10-25] MEDS: MULTIVITAMINS (DAILY MVI) TABLET (FP) PO SCH (09:00)
[2017-10-25] MEDS: ASCORBIC ACID 500 MG TABLET (FP) PO SCH ×2 (09:00→21:21)
[2017-10-25] MEDS: oxyCODONE HCL 10 MG SUSTAINED ACTING TABLET PO SCH ×2 (09:00→21:21)
[2017-10-25] MEDS: PANTOPRAZOLE 40 MG TABLET (FP) PO SCH (09:00)
--- NOTE | 2017-10-25 21:35 | PN ---
Progress Note (short form) - Note Progress Note: Pt seen and examined. Doing well. AVSS Selected Entries 10/25/17 18:00 Temperature 98.3 F Pulse Rate 57 L Respiratory 18 Rate Blood Pressure 130/64 O2 Sat by Pulse 97 Oximetry (%) Oxygen Delivery Room Air Method Laboratory Tests 10/25/17 10/25/17 07:30 07:30 WBC 10.0 Hgb 11.2 Hct 34.1 Plt Count 267 Sodium 138 Potassium 5.0 D Chloride 106 Carbon Dioxide 27 Anion Gap 5 L BUN 16 Creatinine 0.7 Creat Clearance w eGFR > 60 Random Glucose 138 H Calcium 9.2 Gen: NAD LLE: c/d/i, NVID A/P s/p L TKA PT/OOB D/C home in AM
--- NOTE | 2017-10-25 21:41 | DS ---
Physical Examination Vital Signs: Vital Signs Temperature 98.3 F 10/25/17 18:00 Pulse Rate 57 L 10/25/17 18:00 Respiratory Rate 18 10/25/17 18:00 Blood Pressure 130/64 10/25/17 18:00 O2 Sat by Pulse Oximetry (%) 97 10/25/17 20:47 Labs: CBC, BMP 10/25/17 07:30 10/25/17 07:30 Discharge Summary Reason For Visit: OSTEARTHRITIS OF LT KNEE Current Active Problems Osteoarthritis of left knee (Acute) Procedures: Principal: left HERMAN TKA Hospital Course: Admitted for elective surgery. Procedure performed without complications. Pt received postoperative antibiotic prophylaxis and DVT ppx. Ambulated with physical therapy. Stable for discharge home with outpatient followup. Condition: Stable - Instructions Diet, Activity, Other Instructions: Dr. Olivarez - Knee Replacement Instructions Keep the Aquacel dressing on until removed by Dr. Olivarez in 10-14 days - it is antibacterial and waterproof and you can shower with it on. Call the office for a follow-up appointment with Dr. Olivarez in 10-14 days. [phone] Take one ELIQUIS 2.5mg twice daily to prevent blood clots in your legs. Take one Pantoprazole 40mg daily for 6 weeks to protect against heartburn and ulcers. Take Cephalexin (antibiotic) 3x/day for 10 days to help prevent skin infection. Take a multivitamin, stool softener, and extra Vitamin C supplement daily. For pain: *Mild pain (1-3/10): Take 1 Tramadol tablet every 4 hours as needed. Moderate pain (4-6/10): Take 1 Tramadol tablet and 1 Percocet tablet every 4 hours as needed. Severe pain (7-10/10): Take 1 Tramadol tablet and 2 Percocet tablets every 4 hours as needed. Activity: You can put as much weight on the operative leg as you want. Right after you get home, there will be a physical therapist coming to your house to help you walk around and bend/straighten your knee. After your follow-up appointment, you will be sent for more intensive outpatient physical therapy which will include machines and equipment that the home therapist cannot bring to your house. Always use a walker or cane for balance and to prevent falls. Expect to see swelling/bruising from the operative site all the way down to your toes. Wear the compression stocking on the operative side during the day to minimize how much swelling there is in your foot/ankle. Don't wear the stocking at night. You don't have to wear a stocking on the other side. Disposition: [facility]/HOME HEALTH CARE - Home Medications Comprehensive Discharge Medication List: Ambulatory Orders Bisoprolol/Hydrochlorothiazide [Bisoprolol-Hctz 5-6.25 mg Tab] 1 tab PO DAILY Cholecalciferol (Vitamin D3) [Vitamin D3 -] 1,000 unit PO DAILY 07/18/16 Cyanocobalamin (Vitamin B-12) [Vitamin B12] 2,500 mcg PO DAILY 07/18/16 Levothyroxine [Synthroid -] 75 mcg PO DAILY 07/18/16 Losartan Potassium 25 mg PO DAILY 07/18/16 [place]-3 Fatty Acids/Fish Oil [Fish Oil 1,000 mg Softgel] 1,000 mg PO DAILY 07/18 Ascorbic Acid [Vitamin C -] 500 mg PO BID tablet 07/28/16 Multivitamins [Multivit ([facility] Formulary)] 1 tab PO DAILY tab 07/28/16 Apixaban [Eliquis -] 2.5 mg PO BID #70 tablet 10/25/17 Cephalexin Monohydrate [Keflex -] 500 mg PO TID #30 capsule 10/25/17 Oxycodone HCl/Acetaminophen [Percocet 5-325 mg Tablet] 1 - 2 tab PO Q4H PRN #60 tablet MDD 10 10/25/17 Pantoprazole Sodium [Protonix -] 40 mg PO DAILY #40 tablet.ec 10/25/17 Sennosides/Docusate Sodium [Pericolace -] 2 tablet PO BID tablet 10/25/17 traMADol HCL [Ultram -] 50 mg PO Q4H PRN #90 tablet MDD 6 10/25/17
[2017-10-26] MEDS: traMADol HCL 50 MG TABLET PO SCH ×2 (03:32→08:25)
[2017-10-26 05:47] VITALS: TEMP 98.8
[2017-10-26] MEDS: ACETAMINOPHEN 325 MG TABLET (FP) PO SCH (06:11)
[2017-10-26] MEDS: LEVOTHYROXINE NA 75 MCG TABLET (FP) PO SCH (06:12)
[2017-10-26 08:41] LABS: ANION GAP 7 MMOL/L (8-16); BLOOD UREA NITROGEN 19 mg/dl (7-18); CALCIUM 8.8 mg/dl (8.4-10.2); CHLORIDE 105 mmol/L (98-107); CO2 27 mmol/L (22-28); CREATININE 0.7 mg/dl (0.6-1.3); GLUCOSE,RANDOM 99 mg/dl (74-106); HEMOGLOBIN 10.5 GM/dl (10.7-15.3); MCHC 32.8 g/dl (32.0-36.0); MEAN CELL VOLUME 91.5 fl (80-96); PLATELET COUNT 253 K/MM3 (134-434); POTASSIUM 3.9 mmol/L (3.5-5.1); RDW 12.9 % (11.6-15.6); SODIUM 139 mmol/L (136-145); WHITE BLOOD COUNT 7.7 K/mm3 (4.0-10.8)
[2017-10-26] MEDS: ASCORBIC ACID 500 MG TABLET (FP) PO SCH (10:11)
[2017-10-26] MEDS: CELECOXIB 200 MG CAPSULE PO SCH (10:11)
[2017-10-26] MEDS: GABAPENTIN 300 MG CAPSULE (FP) PO SCH (10:12)
[2017-10-26] MEDS: APIXABAN 2.5 MG TABLET PO SCH (10:12)
[2017-10-26] MEDS: oxyCODONE HCL 10 MG SUSTAINED ACTING TABLET PO SCH (10:12)
[2017-10-26] MEDS: PANTOPRAZOLE 40 MG TABLET (FP) PO SCH (10:12)
[2017-10-26] MEDS: LOSARTAN POTASSIUM 25 MG TABLET PO SCH (10:12)
[2017-10-26] MEDS: SENNOSIDES/DOCUSATE COMBO (SENNA PLUS) TABLET (UD) PO SCH (10:12)
[2017-10-26] MEDS: MULTIVITAMINS (DAILY MVI) TABLET (FP) PO SCH (10:20)
[2017-10-26 12:02] VITALS: BP 120/58; PULSE 61
--- NOTE | 2017-11-01 15:19 | PATH ---
Surgical Pathology Report Patient Name: ANALIA RICKETTS Med. Rec. #: [id number] /Age/Gender: 1945 (Age: 72) / F Account: [id number] Location: [facility] MED-SURG Taken: 10/24/2017 Received: 10/24/2017 Reported: 11/01/2017 Physicians: John Olivarez M.D. Specimen(s) Received LEFT KNEE BONE Clinical History Left knee osteoarthritis Final Diagnosis Bone, left knee, total knee replacement: Degenerative joint disease. Electronically Signed Stefania Barry M.D. Gross Description Received in formalin labeled "bone of left knee," is a 10.5 x 10.0 x 2.0 cm aggregate of multiple portions of bone and soft tissue, consistent with knee bones. There are multiple areas of eburnation present, measuring up to 3.5 cm in greatest dimension. The articular surfaces are araiza-brown and diffusely granular. The underlying trabecular bone is yellow and hard. Architectural Examiner sections are submitted in one cassette, following decalcification. /10/25/2017 [facility]10/25/2017
== END 2017-10-26 12:00 | disposition home health service (06) | DRG 470 ==
LOC: FM/S 05:54
PROVIDERS: ADMIT Student in an Organized Health Care Education/Training Program; ATTEND Student in an Organized Health Care Education/Training Program
PROC: 8E0Y0CZ Robotic Assisted Procedure of Lower Extremity, Open Approach (ICD-10-PCS; 2017-10-24)
PROC: 0SRD0J9 Replacement of Left Knee Joint with Synthetic Substitute, Cemented, Open Approach (ICD-10-PCS; principal; 2017-10-24 08:38)
DX: M17.12 Unilateral primary osteoarthritis, left knee (principal); I10 Essential (primary) hypertension; E03.9 Hypothyroidism, unspecified; K21.9 Gastro-esophageal reflux disease without esophagitis; E53.8 Deficiency of other specified B group vitamins
CPT/HCPCS: 36415; 73560-TC-LT-FY; 80048; 85027; 88304-TC; 88311-TC; 94760; 97116-GP; 97162-GP; J0131; J1100